=== PATIENT | female | born 1985 | race Caucasian/White ===

== ENCOUNTER 2017-01-08 17:45 | Emergency (ER) | payer OTHER ==
--- NOTE | ~2017-01-08 | ER ---
PATIENT'S NAME: RICH RON [facility] AGE: 31 Y [address] ROOM: [place] [address] LOCATION: ED ADMIT DATE: 01/08/2017 ER/Outpatient Report DISCHARGE DATE: 01/08/2017 FAMILY PHYSICIAN: PHYSICIAN, NO ATTENDING PHYSICIAN: Clovis Rivas TIME SEEN: The patient is seen at 1805 hours. HISTORY OF PRESENT ILLNESS: This is a 31-year-old female. She was previously quite healthy. She is in with a complaint of fever, chills, generalized body aches, headache, stiff neck, and photophobia. HISTORY OF PRESENT ILLNESS: She reports that she began to feel a little ill yesterday. She noted some swollen lymph nodes and had a slightly sore throat. She states today her sore throat became much worse. She developed the severe headache and photophobia associated with nausea. She has severe pain with any movement of her neck. PAST MEDICAL HISTORY: Significant for hypothyroidism and hypertension. CURRENT MEDICATIONS: See list. REVIEW OF SYSTEMS: She states that she did have an upper respiratory infection about 10 days ago that has resolved. SOCIAL HISTORY: She is . She is a nonsmoker. 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 She lives in [place]. She states she has not been doing any hiking or camping. She has been doing some yard work. PHYSICAL EXAMINATION: GENERAL: A pale, ill-appearing female who appears to be in moderate distress. SKIN: Warm and dry. Color is pale. VITAL SIGNS: She is tachycardic, temperature is 100.4. She is moderately hypertensive, blood pressure is 189/99. HEAD, EARS, EYES, NOSE, AND THROAT: Normal other than the photophobia. NECK: She has marked nuchal rigidity. She has shotty anterior and posterior tender cervical lymphadenopathy. HEART: Regular rate and rhythm without murmur. LUNGS: Clear. PATIENT'S NAME: RICH RON [facility] AGE: 31 Y [address] ROOM: [place] [address] LOCATION: [facility] ADMIT DATE: 01/08/2017 ER/Outpatient Report DISCHARGE DATE: 01/08/2017 FAMILY PHYSICIAN: PHYSICIAN, NO ATTENDING PHYSICIAN: Clovis Rivas ABDOMEN: Soft and nontender. She does have bilateral inguinal adenopathy. EXTREMITIES: Normal. NEUROLOGIC: Normal. LABORATORY DATA: CBC revealed an elevated white blood cell count of 17,000. Comprehensive metabolic profile was unremarkable. Strep screen was positive. CT brain scan was notable for sinusitis and was otherwise negative. EMERGENCY DEPARTMENT COURSE: Lumbar puncture was performed. INDICATIONS FOR PROCEDURE: Headache, photophobia, and nuchal rigidity. PROCEDURE: The patient was seated in the upright position. A 22-gauge spinal needle was advanced into the dural space under local anesthesia. Opening pressure was measured with her sitting upright. The common fluid did not reach the level of her foramen magnum. CSF was collected and sent to the lab. There was no blood loss. No complications. The patient tolerated the procedure well. CSF evaluation revealed no white blood cells, normal protein and glucose, and the Directigen study was negative. Strep screen was positive for group A strep. ASSESSMENT: 1. Strep pharyngitis. 2. Headache, stiff neck, and photophobia. PLAN: She was given Rocephin 2 g IV in the emergency department. She was given a prescription for Percocet and Augmentin. She is instructed to follow up with her regular doctor if not better in 2 to 3 days. MD TOVA MONTGOMERY/cassie /[id number] d: 01/09/17 1149 t: 02/13/17 0453, OUTPATIENT REPORT
--- NOTE | ~2017-01-08 | ER ---
PATIENT'S NAME: RICH RON [facility] AGE: 31 Y [address] ROOM: [place] [address] LOCATION: ED ADMIT DATE: 01/08/2017 ER/Outpatient Report DISCHARGE DATE: 01/08/2017 FAMILY PHYSICIAN: PHYSICIAN, NO ATTENDING PHYSICIAN: Clovis Rivas TIME SEEN: The patient is seen at 1805 hours. HISTORY OF PRESENT ILLNESS: This is a 31-year-old female. She was previously quite healthy. She is in with a complaint of fever, chills, generalized body aches, headache, stiff neck, and photophobia. HISTORY OF PRESENT ILLNESS: She reports that she began to feel a little ill yesterday. She noted some swollen lymph nodes and had a slightly sore throat. She states today her sore throat became much worse. She developed the severe headache and photophobia associated with nausea. She has severe pain with any movement of her neck. PAST MEDICAL HISTORY: Significant for hypothyroidism and hypertension. CURRENT MEDICATIONS: See list. REVIEW OF SYSTEMS: She states that she did have an upper respiratory infection about 10 days ago that has resolved. SOCIAL HISTORY: She is . She is a nonsmoker. 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 She lives in [place]. She states she has not been doing any hiking or camping. She has been doing some yard work. PHYSICAL EXAMINATION: GENERAL: A pale, ill-appearing female who appears to be in moderate distress. SKIN: Warm and dry. Color is pale. VITAL SIGNS: She is tachycardic, temperature is 100.4. She is moderately hypertensive, blood pressure is 189/99. HEAD, EARS, EYES, NOSE, AND THROAT: Normal other than the photophobia. NECK: She has marked nuchal rigidity. She has shotty anterior and posterior tender cervical lymphadenopathy. HEART: Regular rate and rhythm without murmur. LUNGS: Clear. PATIENT'S NAME: RICH RON [facility] AGE: 31 Y [address] ROOM: [place] [address] LOCATION: [facility] ADMIT DATE: 01/08/2017 ER/Outpatient Report DISCHARGE DATE: 01/08/2017 FAMILY PHYSICIAN: PHYSICIAN, NO ATTENDING PHYSICIAN: Clovis Rivas ABDOMEN: Soft and nontender. She does have bilateral inguinal adenopathy. EXTREMITIES: Normal. NEUROLOGIC: Normal. LABORATORY DATA: CBC revealed an elevated white blood cell count of 17,000. Comprehensive metabolic profile was unremarkable. Strep screen was positive. CT brain scan was notable for sinusitis and was otherwise negative. EMERGENCY DEPARTMENT COURSE: Lumbar puncture was performed. INDICATIONS FOR PROCEDURE: Headache, photophobia, and nuchal rigidity. PROCEDURE: The patient was seated in the upright position. A 22-gauge spinal needle was advanced into the dural space under local anesthesia. Opening pressure was measured with her sitting upright. The common fluid did not reach the level of her foramen magnum. CSF was collected and sent to the lab. There was no blood loss. No complications. The patient tolerated the procedure well. CSF evaluation revealed no white blood cells, normal protein and glucose, and the Directigen study was negative. Strep screen was positive for group A strep. ASSESSMENT: 1. Strep pharyngitis. 2. Headache, stiff neck, and photophobia. PLAN: She was given Rocephin 2 g IV in the emergency department. She was given a prescription for Percocet and Augmentin. She is instructed to follow up with her regular doctor if not better in 2 to 3 days. MD TOVA MONTGOMERY/cassie /[id number] d: t: 01/09/17 1219, OUTPATIENT REPORT
[2017-01-08 18:27] LABS: BILIRUBIN URINE NEGATIVE (NEGATIVE); BLOOD URINE 10 /UL (NEGATIVE); COLOR URINE YELLOW (YELLOW); GLUCOSE URINE NEGATIVE (NEGATIVE); KETONE URINE NEGATIVE (NEGATIVE); LEUKOCYTES URINE NEGATIVE /UL (NEGATIVE); NITRITE URINE NEGATIVE (NEGATIVE); PROTEIN URINE NEGATIVE (NEGATIVE); SPEC GRAVITY URINE 1.015 (1.003-1.035); TURBIDITY URINE CLEAR (CLEAR); UROBILINOGEN URINE NORMAL (NORMAL)
[2017-01-08 18:35] LABS: BASOPHIL % 0.2 %; EOSINOPHIL # 0.1 K/uL (0.0-0.5); EOSINOPHIL % 0.5 %; HEMATOCRIT 41.7 % (33.0-46.0); HEMOGLOBIN 14.3 g/dL (11.0-15.0); IMMATURE GRANULOCYTE # 0.1 K/uL (0.0-0.3); IMMATURE GRANULOCYTE % 0.4 %; LYMPHOCYTE # 1.1 K/uL (0.8-4.0); LYMPHOCYTE % 6.1 %; MCH 31.3 pg (27.0-34.0); MCHC 34.3 gm/dL (32.0-36.5); MCV 91.2 fl (83.0-98.0); MONOCYTE % 5.9 %; MPV 9.1 fl (9.4-12.4); NEUTROPHIL % 86.9 %; NRBC % 0 /100WBC (0-0.00); PLATELET COUNT 234 K/uL (150-450); RBC 4.57 M/uL (3.50-5.50); RDW-CV 12.3 % (11.9-14.6)
[2017-01-08 18:36] LABS: WBC 17.3 K/uL (4.0-11.0)
[2017-01-08 18:39] LABS: BACTERIA URINE FEW (NEGATIVE); RBC URINE 0-2 #/HPF (NEGATIVE); WBC URINE 0-2 #/HPF (NEGATIVE)
[2017-01-08 18:50] LABS: ALBUMIN 3.7 gm/dL (3.5-5.0); ALK PHOS 53 IU/L (33-138); ALT 20 IU/L (12-78); ANION GAP 15.6 (10.0-19.0); AST 15 IU/L (10-40); BLOOD UREA NITROGEN 11 mg/dL (6-24); CHLORIDE 109 mMol/L (96-110); CO2 21 mMol/L (22-32); ESTIMATED GFR (MDRD EQUATION) > 60; POTASSIUM 3.6 mMol/L (3.7-5.1); SODIUM 142 mMol/L (135-145); TOTAL BILIRUBIN 0.6 mg/dL (0.0-1.5); TOTAL PROTEIN 7.8 g/dL (6.0-8.4)
== END 2017-01-08 21:30 | disposition disaster alternative care site (69) ==
LOC: GMED 17:45
PROVIDERS: Emergency Medicine
PROC: 009U3ZX Drainage of Spinal Canal, Percutaneous Approach, Diagnostic (ICD-10-PCS; principal; 2017-01-08)
DX: J02.0 Streptococcal pharyngitis (principal); M43.6 Torticollis; H53.149 Visual discomfort, unspecified; E03.9 Hypothyroidism, unspecified; I10 Essential (primary) hypertension; Z91.040 Latex allergy status; Z79.899 Other long term (current) drug therapy
CPT/HCPCS: J0696; J1100; J1170; J2405; J7030